=== PATIENT | male | born 1970 | race Caucasian/White ===

== ENCOUNTER 2017-10-06 07:45 | Day surgery (SDC) | payer OTHER ==
--- NOTE | 2017-10-06 08:48 | CP.SDSHP ---
Same Day Surgery H & P - History Proposed Procedure: EGD Pre-Op Diagnosis: SEE NOTES - Previous Medical/Surgical History Cardiac: Hypertension Endocrine/Metabolic: Diabetes, Other Misc: Other Pain: 4.Moderate Pain - Allergies Allergies: Allergies No Known Allergies Allergy (Verified 10/27/15 20:02) - Physical Exam General Appearance: N Vital Signs: Vital Signs 10/06/17 10/06/17 08:05 08:25 Temperature 97.8 F Pulse Rate 76 76 Respiratory 19 Rate Blood Pressure 116/72 O2 Sat by Pulse 97 Oximetry Mental Status: Alert & Oriented x3 Neuro: WNL Heart: Other Lungs: WNL GI: Other - {Optional Preform as Required} Breast: WNL Abdomen: Other Rectal: Other Integument: WNL : WNL Ortho: Other ENT: WNL - Impression Pt. Evaluated Today:Candidate for Anesthesia & Procedure: Yes - Date & Time Time: 08:48 Short Stay Discharge - Short Stay Discharge Admitting Diagnosis/Reason for Visit: FUNCTIONAL DYSPEPSIA Disposition: HOME/ ROUTINE
[2017-10-06] MEDS ORDERED: Belladonna-Phenobarbital PO STA (08:49)
[2017-10-06] MEDS ORDERED: Sucralfate 1 gm/10 ml Oral Susp UD PO ONE ×2 (09:20→11:45)
[2017-10-06] MEDS ORDERED: Albuterol HFA 90 mcg/actuation (8 g) ONE (10:01)
[2017-10-06] MEDS ORDERED: Lidocaine 2% MPF (5 ml) Inj ONE (10:23)
--- NOTE | 2017-10-06 10:39 | CP.SDSHP ---
Same Day Surgery H & P - History Proposed Procedure: EGD Pre-Op Diagnosis: SEE NOTES - Previous Medical/Surgical History Pulmonary: Asthma, Bronchitis Pain: 4.Moderate Pain - Allergies Allergies: Allergies No Known Allergies Allergy (Verified 10/27/15 20:02) - Physical Exam General Appearance: N Vital Signs: Vital Signs 10/06/17 10/06/17 08:05 08:25 Temperature 97.8 F Pulse Rate 76 76 Respiratory 19 Rate Blood Pressure 116/72 O2 Sat by Pulse 97 Oximetry Mental Status: Alert & Oriented x3 Neuro: WNL Heart: WNL GI: Other - {Optional Preform as Required} Breast: WNL Abdomen: Other Rectal: Other Integument: WNL : WNL Ortho: WNL ENT: WNL - Impression Pt. Evaluated Today:Candidate for Anesthesia & Procedure: Yes - Date & Time Time: 10:39 Short Stay Discharge - Short Stay Discharge Admitting Diagnosis/Reason for Visit: FUNCTIONAL DYSPEPSIA Disposition: HOME/ ROUTINE
[2017-10-06] MEDS ORDERED: Propofol 10 mg/ml Inj (20 ML) ONE (10:47)
[2017-10-06] MEDS ORDERED: Lactated Ringer's 1,000 ML IV ONE (10:59)
[2017-10-06 11:13] VITALS: TEMP 97.6
[2017-10-06] MEDS ORDERED: Belladonna-Phenobarbital PO ONE (11:45)
[2017-10-06 11:58] VITALS: O2SAT 100
[2017-10-06 12:03] VITALS: BP 114/76; PULSE 60; RESP 15
== END 2017-10-06 12:00 | disposition home or self-care (01) ==
LOC: C.ENDO 07:45
PROVIDERS: ATTEND Specialist
DX: K29.50 Unspecified chronic gastritis without bleeding (principal); B96.81 Helicobacter pylori [H. pylori] as the cause of diseases classified elsewhere; K29.80 Duodenitis without bleeding; K44.9 Diaphragmatic hernia without obstruction or gangrene
CPT/HCPCS: 43239; 88305; 88342; J2704; J7120